=== PATIENT | female | born 1945 | race Caucasian/White ===

== ENCOUNTER → 2024-03-09 10:09 | Outpatient (REF) | payer OTHER, SELFPAY | LOC: HWRAD 10:09 | PROVIDERS: ATTENDING PHYSICIAN Family Medicine | DX: M25.561 Pain in right knee (principal) | CPT/HCPCS: 73564 ==

== ENCOUNTER → 2024-03-24 13:03 | Outpatient (REF) | payer OTHER, SELFPAY | LOC: HWWDC 13:03 | PROVIDERS: ATTENDING PHYSICIAN Family Medicine | DX: Z12.31 Encounter for screening mammogram for malignant neoplasm of breast (principal); Z78.0 Asymptomatic menopausal state | CPT/HCPCS: 77063; 77067; 77080 ==

== ENCOUNTER → 2024-09-28 13:25 | Outpatient (REF) | payer OTHER, SELFPAY | LOC: HWRAD 13:25 | PROVIDERS: ATTENDING PHYSICIAN Physician Assistant | DX: J45.41 Moderate persistent asthma with (acute) exacerbation (principal) | CPT/HCPCS: 71046 ==

== ENCOUNTER 2024-10-13 21:02 | Inpatient (IN) | payer OTHER, SELFPAY ==
[2024-10-13] VITALS (7 sets, daily range): BP systolic 105–149; BP diastolic 59–85; BMI 27.7
--- NOTE | 2024-10-13 15:24 | ED.GENMED ---
ED Provider Triage
<Yessenia Salinas PA-C - Last Filed: 10/13/24 15:30>
-
Patient seen by provider in Triage?: Seen in Triage
Attestation: A medical screening examination has been initiated by a qualified medical provider. Based on the assessment performed at this time, it has been determined that an emergent medical condition may exist and the patient has been informed
that further medical evaluation and possible additional diagnostic testing may be needed.
HPI: 79yoF here with SOB and cough x several weeks. Using inhaler with some improvement. Worse with exertion. Also having decreased PO intake and pleuritic pain. Sent to ED by PCP for evaluation.
GENERAL: Alert , in no apparent distress
EYE: No visual abnormalities.
NECK: Trachea midline
ENT: No visible abnormalities.
LUNGS: No acute respiratory distress
NEUROLOGICAL: Alert and oriented
SKIN: Skin intact. No visible changes.
MUSCULOSKELETAL: Moving extremities normally
PSYCH: Normal and appropriate interaction.
This is a medical evaluation conducted in person to initiate diagnostic evaluation and provide initial therapeutics. Please see further documentation by the treating clinician.
Basilar rales on exam. Cardiac labs, D-dimer, EKG, and CXR ordered.
History of Present Illness
<Yessenia Salinas PA-C - Last Filed: 10/13/24 15:30>
General
Chief Complaint: Breathing Problem
Time Seen by Provider: 10/13/24 18:32
<Clayton Reese MD - Last Filed: 10/13/24 20:00>
General
Source: patient and spouse
Exam Limitations: none
Nursing documentation reviewed up to this point in time: agreed with
History of Present Illness
History of Present Illness:
79-year-old female with a past medical history of hypertension, hyperlipidemia, asthma who presents to the emergency department for evaluation of shortness of breath. Patient reports that she has been dealing with increased shortness of breath over
the past few months that she has been attributing to asthma and has been treated with steroids and albuterol. Over the past 2 weeks her symptoms have become much worse and after a follow-up appoint with your primary doctor in the office today was
referred to the ER for further assessment. She has not had any significant coughing or fever. Has not had any chest pain. She has not noticed any swelling or pain in her legs. She denies any known cardiac history. Denies any known history of
DVT/PE. She did have a recent vacation in [facility] in June which involves a long flight.
Past History
<Yessenia Salinas PA-C - Last Filed: 10/13/24 15:30>
Past History
ED Past Medical History: Asthma, HTN and Hypercholesterolemia
Social History
Tobacco: Non-smoker
Alcohol: Daily
Review of Systems
<Clayton Reese MD - Last Filed: 10/13/24 20:00>
Review of Systems
All Other Systems: ROS reviewed and negative except as documented in HPI and ROS
Constitutional: Reports fatigue; Denies fever or chills
Respiratory: Reports trouble breathing; Denies cough
Cardiac: Reports palpitations (Occasional); Denies chest pain
ABD/GI: Denies abdominal pain, nausea or vomiting
: Denies flank pain
Musculoskeletal: Denies edema, neck pain or back pain
Neurological: Denies dizzy or headache
Phy Exam
<Clayton Reese MD - Last Filed: 10/13/24 20:00>
Physical Exam
Physical Exam:
General: Awake, alert, oriented x3; no acute distress
Head: Normocephalic, atraumatic
Eyes: Conjunctiva normal, EOMI
Throat: Airway intact, handling secretions
Neck: Trachea midline, supple without meningismus
Lungs: Clear to auscultation bilaterally, no wheezing, rales, rhonchi
Heart: Regular rate and rhythm, no murmurs, gallops, or rubs
Abd: Soft, non distended, nontender
Neuro: Cranial nerves grossly intact, speech fluid
Skin: no rash
Extremities: No edema in extremities, equal pulses in all extremities
Scores
<Clayton Reese MD - Last Filed: 10/13/24 20:00>
Heart Failure Risk
Heart Failure Risk Score: Not Applicable
Heart Score for Chest Pain Patients
STEMI patient?: Not applicable
Withdrawal Assessment of Alcohol
Withdrawal Assessment Completed?: Not applicable
Course
<Yessenia Salinas PA-C - Last Filed: 10/13/24 15:30>
Orders/Labs/Results
Orders:
Orders
10/13/24 15:29
Electrocardiogram (*1) Urgent
Reason for Study: Shortness of Breath
EKG- Treatment ONCE
10/13/24 15:35
Complete Blood Count/With Diff Urgent
Comprehensive Metabolic Panel Urgent
D-Dimer Urgent
NT-proBNP Urgent
Troponin I Urgent
10/13/24 16:07
CT Chest Pe Study Urgent
Comment:
Reason For Exam: SOB, elevated D-dimer
10/13/24 18:55
Echo 2D MMode Color/Doppler Stat
Reason for Study: submassive PE
Cardiology Consult: Grady Chen
10/13/24 19:07
Heparin 5,300 units IV NOW STA
Nursing to Place Non Medication Order As Directed
Physician Order: PTT 6 hours after initial start of Heparin infusion
10/13/24 19:09
PULMONARY CONSULT Urgent
Consulting Provider: Flavio Dawson
Was physician already notified: Yes
10/13/24 19:15
Heparin 36296 Units/250 ml 25,000 units in 250 ml IV PER PROTOCOL
Weight to be used for heparin protocol in kilograms (kg):: 66.4
Protocol:: DVT/PE
PTT Goal Range to be used:: PTT 73 to 111 seconds
Order type:: Initial
INITIAL Infusion Dose (UNITS/KG/hr) & then follow protocol:: 18 units/kg/hr
Infusion Dose in UNITS/hr & then follow protocol (UNITS/hr):: 1,200
INFUSION RATE in mL/hr & then follow protocol (mL/hr):: 12
For DVT/PE algorithm, re-bolus for low PTT?: Yes
PTT less than or equal to 64 seconds:: Re-bolus 80 units/kg (max 10,000units). Increase by 300 units/hr
(+ 3mL/hr)
PTT 64.1 to 72.9 seconds:: Re-bolus 40 units/kg (max 5,000 units). Increase by 100 units/hr
(+ 1mL/hr)
PTT 73 to 111 seconds:: Target Range. No change in rate.
PTT 111.1 to 130.9 seconds:: Decrease rate by 100 units/hr (- 1 mL/hr)
PTT 131 to 199.9 seconds:: HOLD for 1 hr. Then decrease by 200 units/hr (- 2mL/hr)
PTT greater than or equal to 200 seconds:: HOLD for 2 hrs & Notify Provider. Then decrease by 300 units/hr
(- 3mL/hr)
Lab follow-up:: Each change, PTT q6h until 2 consecutive are therapeutic. Then
PTT daily.
10/13/24 19:37
Heparin 2,700 units IV PRN PRN
Heparin 5,300 units IV PRN PRN
10/13/24 19:38
PTT Urgent
Comment: Obtain baseline before beginning heparin infusion if not already collected
Abnormal Lab Results
10/13/24
15:35
WBC 11.9 H 10^3/uL
(4.8-10.8)
MCH 33.1 H pg
(27.0-31.0)
Abs Immat Gran (auto) 0.1 H 10^3/uL
(0-0.05)
Absolute Neuts (auto) 7.9 H 10^3/uL
(1.4-6.5)
Absolute Monos (auto) 1.1 H 10^3/uL
(0.1-0.6)
Lymphocytes % 19.8 L %
(20.5-51.1)
Monocytes % 9.6 H %
(1.7-9.3)
D-Dimer 2.89 H ug/mlFEU
(0.00-0.50)
Potassium 3.1 L mmol/L
(3.5-5.1)
Carbon Dioxide 32 H mmol/L
(22-30)
BUN 21 H mg/dl
(7-17)
Glucose 127 H mg/dl
(70-99)
Calcium 10.4 H mg/dl
(8.4-10.2)
10/13/24 15:35
10/13/24 15:35
Vital Signs
Initial and Last Documented VS:
Initial Vital Signs
Temp Pulse Resp Pulse Ox
36.6 C 103 18 96
10/13/24 15:25 10/13/24 15:25 10/13/24 15:25 10/13/24 15:25
Last Documented Vital Signs
Temp Pulse Resp BP Pulse Ox
36.6 C 99 20 129/82 97
10/13/24 17:50 10/13/24 19:35 10/13/24 19:35 10/13/24 19:35 10/13/24 17:50
<Clayton Reese MD - Last Filed: 10/13/24 20:00>
Orders/Labs/Results
Orders:
Orders
10/13/24 15:29
Electrocardiogram (*1) Urgent
Reason for Study: Shortness of Breath
EKG- Treatment ONCE
10/13/24 15:35
Complete Blood Count/With Diff Urgent
Comprehensive Metabolic Panel Urgent
D-Dimer Urgent
NT-proBNP Urgent
Troponin I Urgent
10/13/24 16:07
CT Chest Pe Study Urgent
Comment:
Reason For Exam: SOB, elevated D-dimer
10/13/24 18:55
Echo 2D MMode Color/Doppler Stat
Reason for Study: submassive PE
Cardiology Consult: Grady Chen
10/13/24 19:07
Heparin 5,300 units IV NOW STA
Nursing to Place Non Medication Order As Directed
Physician Order: PTT 6 hours after initial start of Heparin infusion
10/13/24 19:09
PULMONARY CONSULT Urgent
Consulting Provider: Flavio Dawson
Was physician already notified: Yes
10/13/24 19:15
Heparin 87522 Units/250 ml 25,000 units in 250 ml IV PER PROTOCOL
Weight to be used for heparin protocol in kilograms (kg):: 66.4
Protocol:: DVT/PE
PTT Goal Range to be used:: PTT 73 to 111 seconds
Order type:: Initial
INITIAL Infusion Dose (UNITS/KG/hr) & then follow protocol:: 18 units/kg/hr
Infusion Dose in UNITS/hr & then follow protocol (UNITS/hr):: 1,200
INFUSION RATE in mL/hr & then follow protocol (mL/hr):: 12
For DVT/PE algorithm, re-bolus for low PTT?: Yes
PTT less than or equal to 64 seconds:: Re-bolus 80 units/kg (max 10,000units). Increase by 300 units/hr
(+ 3mL/hr)
PTT 64.1 to 72.9 seconds:: Re-bolus 40 units/kg (max 5,000 units). Increase by 100 units/hr
(+ 1mL/hr)
PTT 73 to 111 seconds:: Target Range. No change in rate.
PTT 111.1 to 130.9 seconds:: Decrease rate by 100 units/hr (- 1 mL/hr)
PTT 131 to 199.9 seconds:: HOLD for 1 hr. Then decrease by 200 units/hr (- 2mL/hr)
PTT greater than or equal to 200 seconds:: HOLD for 2 hrs & Notify Provider. Then decrease by 300 units/hr
(- 3mL/hr)
Lab follow-up:: Each change, PTT q6h until 2 consecutive are therapeutic. Then
PTT daily.
10/13/24 19:37
Heparin 2,700 units IV PRN PRN
Heparin 5,300 units IV PRN PRN
10/13/24 19:38
PTT Urgent
Comment: Obtain baseline before beginning heparin infusion if not already collected
Abnormal Lab Results
10/13/24
15:35
WBC 11.9 H 10^3/uL
(4.8-10.8)
MCH 33.1 H pg
(27.0-31.0)
Abs Immat Gran (auto) 0.1 H 10^3/uL
(0-0.05)
Absolute Neuts (auto) 7.9 H 10^3/uL
(1.4-6.5)
Absolute Monos (auto) 1.1 H 10^3/uL
(0.1-0.6)
Lymphocytes % 19.8 L %
(20.5-51.1)
Monocytes % 9.6 H %
(1.7-9.3)
D-Dimer 2.89 H ug/mlFEU
(0.00-0.50)
Potassium 3.1 L mmol/L
(3.5-5.1)
Carbon Dioxide 32 H mmol/L
(22-30)
BUN 21 H mg/dl
(7-17)
Glucose 127 H mg/dl
(70-99)
Calcium 10.4 H mg/dl
(8.4-10.2)
10/13/24 15:35
10/13/24 15:35
Vital Signs
Initial and Last Documented VS:
Initial Vital Signs
Temp Pulse Resp Pulse Ox
36.6 C 103 18 96
10/13/24 15:25 10/13/24 15:25 10/13/24 15:25 10/13/24 15:25
Last Documented Vital Signs
Temp Pulse Resp BP Pulse Ox
36.6 C 99 20 129/82 97
10/13/24 17:50 10/13/24 19:35 10/13/24 19:35 10/13/24 19:35 10/13/24 17:50
<Clayton Reese MD - Last Filed: 10/13/24 20:00>
MDM/Problems Addressed
Differential Diagnosis Includes:
Pneumonia, PE, CHF, asthma
MDM/Problems Addressed:
79-year-old female presents for evaluation of progressive shortness of breath really over the past few months but much worse over the past 2 weeks. She was tachycardic in triage normalized by my assessment, rest of vitals normal including a normal
respiratory rate and normal pulse ox on room air. She was actually seen in triage and had her workup done prior to my initial assessment�her CBC showed marginal leukocytosis, CMP showed hypokalemia. Acceptable renal function. Her D-dimer was
positive and so she was sent for a follow-up CTA which showed bilateral pulmonary embolism with signs of right heart strain. Interestingly her troponin is undetectable but her proBNP was slightly elevated. On receiving these results patient was
immediately brought back to a room and PERT alert called. Case discussed with both pulmonology and interventional radiology. Plan for echocardiogram to better assess RV. Decide regarding catheter directed thrombolysis pending echocardiogram.
Will start on heparin infusion in the meantime. Case discussed with hospitalist for admission. I did discuss with cardiology and air traffic systems technician on-call to facilitate stat echo.
Report received from cardiology: Echocardiogram shows dilated hypocontractile RV with PA pressures of 78. LV normal, EF 50 to 55%. Relayed report to pulmonology and interventional radiology, patient remains stable and is on room air and appears
quite well. Unfortunately clot appears to be too far peripheral for embolectomy.
<Clayton Reese MD - Last Filed: 10/13/24 20:00>
*Radiology
Radiology exam reviewed: radiology read reviewed
*Pulse Oximetry
Patient hypoxic: no
*EKG
Interpreted by ED Provider?: Yes
Heart Rate: 108
Rate: tachycardiac
Rhythm: sinus
[place]: left axis deviation
Interval: normal interval
QRS Pattern: normal QRS
Ischemia: non-specific ST changes
*Critical Care Note
Total Time (30-74mins, 75-104mins- exclusive of procedures): 30
comment:
Critical care statement: A total of 30 minutes of critical care time was provided for this patient. This includes management of unstable vital signs, evaluation of the patient at bedside, frequent reassessment, discussion with
consultants/hospitalist, and review of pertinent medical records. This time was separate from time utilized to perform any aforementioned documented procedures
Data Reviewed
Source: patient and spouse
<Clayton Reese MD - Last Filed: 10/13/24 20:00>
Patient Management
Discussion with other providers: Hospitalist (Discussed with hospitalist), Tax Accountant (Discussed with interventional radiology, pulmonology) and Radiologist (Discussed with radiologist)
Escalation/DeEscalation of care consider admission/obs:
Admission indicated
ED Attending Note
<Yessenia Salinas PA-C - Last Filed: 10/13/24 15:30>
-
Portions of this chart may have been created with voice recognition software.� Occasional wrong word or��sound alike� substitutions may have occurred due to the inherent limitations of voice recognition software.
Discharge Plan
Departure
Patient Disposition: Admit
Date of Disposition: 10/13/24
Time of Disposition: 19:07
Admit to doctor: Brian
Presentation/result/management discussed w/ accepting MD/DO: Hospitalist
Discharge Problem:
Pulmonary embolism
Prescriptions:
No Action
levothyroxine [Synthroid] 100 MCG tablet
100 mcg PO DAILY
hydrochlorothiazide 25 MG tablet
25 mg PO DAILY
albuterol sulfate [Ventolin HFA] 90 MCG/PUFF HFA aerosol inhaler
2 puff inhalation R Q4HPRN PRN (Reason: sob)
losartan 50 mg Tablet
50 mg PO DAILY
atorvastatin 20 mg Tablet
20 mg PO DAILY
ibuprofen 200 mg Tablet
200 mg PO Q6HPRN PRN (Reason: mild pain)
cholecalciferol (vitamin D3) [Vitamin D3] 50 mcg (2,000 unit) Tablet
100 mcg PO Q48H
Interventions
Interventions:
*Risk Screen - Suicide Last Done: 10/13/24 15:27
*General Assessment Last Done: 10/13/24 15:27
*Neglect/Abuse Screening Last Done: 10/13/24 15:27
Discharge Date and Time
Print Language: BURMESE
[2024-10-13 15:43] LABS: % Basophils 0.6 % (0-2); % Eosinophils 3.5 % (0-6); % Immature Granulocytes 0.4 % (0-0.5); % Lymphocytes 19.8 % (20.5-51.1); % Monocytes 9.6 % (1.7-9.3); % Neutrophils 66.1 % (42.2-75.2); Absolute Basophils 0.1 10^3/uL (0-0.2); Absolute Eosinophils 0.4 10^3/uL (0-0.7); Absolute Immature Granulocytes 0.1 10^3/uL (0-0.05); Absolute Lymphocytes 2.4 10^3/uL (1.2-3.4); Absolute Monocytes 1.1 10^3/uL (0.1-0.6); Absolute Neutrophils 7.9 10^3/uL (1.4-6.5); Hematocrit 46.4 % (37.0-47.0); Hemoglobin 15.7 g/dL (12.0-16.0); Mean Corp Hgb Conc. 33.8 g/dL (33.0-37.0); Mean Corpuscular Hgb 33.1 pg (27.0-31.0); Mean Corpuscular Volume 97.7 fL (81.0-99.0); Mean Platelet Volume 10.4 fL (7.4-10.4); Nucleated Red Blood Cells % 0 %; Platelet Count 329 10^3/uL (130-400); Red Blood Cell Count 4.75 10^6/uL (4.20-5.40); Red Cell Dist. Width 12.8 % (11.5-14.5); White Blood Cell Count 11.9 10^3/uL (4.8-10.8)
[2024-10-13 15:55] LABS: ALT (SGPT) 27 U/L (0-35); AST (SGOT) 23 U/L (14-36); Albumin 4.6 g/dl (3.5-5.0); Alkaline Phosphatase 55 U/L (38-126); Blood Urea Nitrogen 21 mg/dl (7-17); Calcium 10.4 mg/dl (8.4-10.2); Carbon Dioxide 32 mmol/L (22-30); Chloride 98 mmol/L (98-107); Glucose 127 mg/dl (70-99); Potassium 3.1 mmol/L (3.5-5.1); Sodium 141 mmol/L (135-145); Total Bilirubin 0.7 mg/dl (0.2-1.3); Total Protein 7.6 g/dl (6.3-8.2); eGFR > 60.00
[2024-10-13 15:56] LABS: D-Dimer 2.89 ug/mlFEU (0.00-0.50)
[2024-10-13 16:13] LABS: NT-proBNP 3400 pg/ml; Troponin I < 0.012 ng/ml
--- NOTE | 2024-10-13 18:58 | W.PN.UPDATE ---
Update Note
Progress Note Update
Received call regarding PERT alert for this patient. She remains hemodynamically stable, pulse rate 72 and saturating 97% on room air. CTA chest shows multiple bilateral pulmonary emboli with severe clot burden and mild evidence of right heart
strain. No evidence of central saddle emboli. I recommended to the ER physician, Dr. Reese, or to get a stat echocardiogram to assess RV function. Also start systemic anticoagulation.
If RV function is moderate to severely dysfunctional then would recommend catheter directed thrombolysis as I do not believe that suction thrombectomy would be possible in this case. Would defer final decision to IR.
Based on her mild right heart strain on CTA chest, as well as her negative troponin, I suspect that patient will have nonsevere RV dysfunction and would likely benefit from systemic anticoagulation alone.
[2024-10-13] MEDS: HEPARIN 5300 UNITS IV (19:46)
--- NOTE | 2024-10-13 20:13 | HPS.HSE ---
Family Physician
-
Family Physician:
Chief Complaint
-
SOB
History of Present Illness
Patient is a 79y F with PMH significant for asthma and hypertension who presents to ED complaining of SOB. Patient states that she started to feel more short of breath in early August. She has had hacking cough and post-nasal drip since that
time and blamed her symptoms on allergies / environmental asthma. She was seen by her PCP and treated with Medrol pack which did improve her symptoms for a time. For the past 3 weeks her symptoms have been gradually progressing. Over the past 3
days her dyspnea has been quite severe. She feels well at rest, but has significant dyspnea with even minimal activity. Patient denies any chest pain, back pain, abdominal pain, N/V/D. She denies any LE edema or calf pain. She has no prior
history of DVT / PE. No family history of VTE.
Patient flew to [place] and [facility] in early August - just prior to onset of these symptoms.
She flew to [facility] in July.
In the ED, patient is resting comfortably and has no complaints while at rest.
Medical History
Past Medical History
Past Medical History: Reports Other
Additional Past Medical History:
Asthma
Bronchiectasis
Hypothyroidism
Hypertension
Melanoma
Past Surgical History: Reports Other
Additional Past Surgical History:
Melanoma Excision (1 year ago)
Cholecystectomy
Tubal Ligation
L Oophorectomy
Left ACL / MCL Repair
Social History
Tobacco: Non-smoker
Alcohol: Daily (1/2 bottle of wine daily.)
Drug: None
Family History
Family History: Other (Mother: Kidney Disease Daughter: Wilms Tumor)
Allergies / Home Medications
Allergies reflects when Allergies were last updated in [facility].
Home Medications with original date entered in [facility]
Allergy/Medication List:
Allergies
Allergy/AdvReac Type Severity Reaction Status Date / Time
No Known Allergies Allergy Verified 10/13/24 15:28
Home Medications
albuterol sulfate 90 mcg/actuation aerosol inhaler (Ventolin HFA) 2 puff inhalation R Q4HPRN PRN sob 02/07/10
hydrochlorothiazide 25 mg tablet 25 mg PO DAILY 02/07/10
levothyroxine 100 mcg tablet (Synthroid) 100 mcg PO DAILY 02/07/10
atorvastatin 20 mg tablet 20 mg PO DAILY 10/13/24
cholecalciferol (vitamin D3) 50 mcg (2,000 unit) tablet (Vitamin D3) 100 mcg PO Q48H 10/13/24
ibuprofen 200 mg tablet 200 mg PO Q6HPRN PRN mild pain 10/13/24
losartan 50 mg tablet 50 mg PO DAILY 10/13/24
Review of Systems
-
History Source: Patient
A 12 point ROS was completed and negative except as noted: Yes
Constitutional: Reports Fatigue; Denies Fever or Chills
EENT: Reports Runny Nose; Denies Sore Throat
Respiratory: Reports Cough and Trouble Breathing
Cardiac: Denies Chest Pain, Diaphoresis, Palpitations or Syncope
Abdomen/GI: Denies Abdominal Pain, Nausea, Vomiting or Diarrhea
: Denies Dysuria or Frequency
Musculoskeletal: Denies Edema
Neurological: Denies Dizzy or Headache
Psych: Denies Depression or Anxiety
Physical Exam
Vital Signs
Vital Signs
Temp Pulse Resp BP Pulse Ox
97.8 F 103 21 123/71 94
10/13/24 17:50 10/13/24 20:00 10/13/24 20:00 10/13/24 20:00 10/13/24 20:02
Physical Exam
General: Other (79y F in no acute distress.)
HEENT: Moist mucous membranes, PERRLA and Other (no JVD or HJR.)
Respiratory: Other (Few rales at bases - otherwise clear. No wheezing.)
Cardiac: S1/S2 and Tachycardia; No Murmur
GI: Soft, Non Tender, Non Distended and Normal Bowel Sounds
Musculoskeletal: No Clubbing, No Cyanosis, No Edema and Other (No calf tenderness / palpable cords.)
Neuro: AO x 3
Laboratory Results
-
10/13/24 15:35
10/13/24 15:35
Laboratory Results
APTT 29.0 Sec (23.4-35.0) 10/13/24 19:38
Total Bilirubin 0.7 mg/dl (0.2-1.3) 10/13/24 15:35
AST 23 U/L (14-36) 10/13/24 15:35
ALT 27 U/L (0-35) 10/13/24 15:35
Alkaline Phosphatase 55 U/L (38-126) 10/13/24 15:35
Troponin I < 0.012 ng/ml 10/13/24 15:35
Impression/Plan
-
A/P: Patient is a 79y F with PMH significant for asthma and hypertension who presents to ED complaining of HOWARD that has been progressive over the past several weeks.
Bilateral Pulmonary Emboli
RV Hypokinesis secondary to the above
- Admit for further evaluation and treatment.
- Appreciate Pulm / Director Of Enterprise Applications evaluation and recommendations.
- Patient clinically appears very well with normal BP, oxygenation without supplemental O2, etc.
- IV heparin infusion and follow for clinical improvement.
- Check LE Dopplers.
- Follow for any new / worsening symptoms.
- Transition to DOAC prior to discharge for at least 6 months of total anticoagulation.
Mild Hypokalemia
- Hold HCTZ for now.
- Check Mg. Follow for changes.
Mild Intermittent Asthma without Acute Exacerbation
- No wheezing appreciated on exam.
- Follow for any new / worsening symptoms.
- Albuterol PRN.
Benign Hypertension
- Stable. Hold HCTZ as noted above.
- Continue losartan with holding parameters.
Hypothyroidism
- Stable. Continue T4 replacement.
DVT Prophylaxis: On IV Heparin
Code Status: Full
[2024-10-13] MEDS: HEPARIN 25000 UNITS/250 ML IV (20:28)
[2024-10-13 20:58] LABS: COVID-19 Antigen Negative (Negative)
[2024-10-14] VITALS (11 sets, daily range): BP systolic 95–116; BP diastolic 62–82; BMI 27.3
[2024-10-14 03:25] LABS: INR 1.13; PT 14.8 Sec (11.4-14.6)
[2024-10-14 03:33] LABS: Troponin I 0.012 ng/ml
[2024-10-14 03:52] LABS: APTT 114.1 Sec (23.4-35.0)
[2024-10-14] MEDS: SYNTHROID 100 MCG PO (06:29)
[2024-10-14 06:54] LABS: Troponin I < 0.012 ng/ml
[2024-10-14 07:30] LABS: Blood Urea Nitrogen 18 mg/dl (7-17); Calcium 9.3 mg/dl (8.4-10.2); Carbon Dioxide 28 mmol/L (22-30); Chloride 101 mmol/L (98-107); Estimated Creatinine Clearance 58 ml/min; Glucose 116 mg/dl (70-99); Potassium 3.3 mmol/L (3.5-5.1); Sodium 138 mmol/L (135-145); eGFR > 60.00
[2024-10-14] MEDS: COZAAR 50 MG PO (08:19)
[2024-10-14] MEDS: FOLVITE 1 MG PO (08:20)
[2024-10-14] MEDS: THIAMINE INJECTION 200 MG IV ×2 (08:20→21:01)
[2024-10-14] MEDS: LIPITOR 20 MG PO (08:21)
--- NOTE | 2024-10-14 08:50 | W.PN.HOSP.TC ---
Today's Communication/Plan
-
Continue IV heparin drip
Assessment / Plan
Assessment / Plan
79y F with PMH significant for asthma and hypertension who presents to ED complaining of SOB. Patient states that she started to feel more short of breath in early August. She has had hacking cough and post-nasal drip since that time and
blamed her symptoms on allergies / environmental asthma. She was seen by her PCP and treated with Medrol pack which did improve her symptoms for a time. For the past 3 weeks her symptoms have been gradually progressing. Over the past 3 days her
dyspnea has been quite severe.
Bilateral Pulmonary Emboli
Acute left lower extremity DVT
RV Hypokinesis secondary to the above
Acute hypoxic respiratory insufficiency
- Appreciate Pulm / Software Reverse Engineer evaluation and recommendations.
- Continue IV heparin drip, will need to have anticoagulation for 3-6 months
Mild Hypokalemia
- Continue to replete, check magnesium
Left Gardner's cyst
-Tylenol as needed pain
Mild Intermittent Asthma without Acute Exacerbation
- No wheezing appreciated on exam.
- Albuterol PRN.
Benign Hypertension
- Stable. Hold HCTZ as noted above.
- Continue losartan with holding parameters.
Hypothyroidism
- Stable. Continue T4 replacement.
DVT Prophylaxis: On IV Heparin
Code Status: Full
Updated at bedside 10/14
Total time spent to see the patient on the floor, examine the patient, review data and lab results, discuss treatment plan with patient, nursing staff around 45 minutes.
Physical Exam
General: No acute distress
HEENT: Normocephalic, Atraumatic, EOMI, MMM
Respiratory: Clear to Auscultation bilaterally
Cardiac: Normal S1/S2, Regular Rate and Rhythm
GI: Soft, Nontender, Nondistended, Normal Bowel Sounds
Extremities: No Clubbing, Cyanosis, or Edema
Neuro: Nonfocal/Grossly Intact
Psych: Calm, Cooperative
Derm: No Visible lesions
Anticipated Discharge: 24 - 48 hours
Subjective/Interval History
-
Date of Service: October 14, 2024
Patient reports dyspnea with activity. She also has pleuritic left-sided chest pain. No fever, no vomiting. No palpitations.
Objective Data
-
Labs:
Laboratory Results
10/14/24 10/14/24 10/14/24
03:02 06:16 09:48
PT 14.8 H
INR 1.13
APTT 114.1 H Pending
Sodium 138
Potassium 3.3 L
Chloride 101
Carbon Dioxide 28
BUN 18 H
Creatinine 0.7
Glucose 116 H
Calcium 9.3
Vital Signs:
Vital Signs
Temp Pulse Resp BP Pulse Ox
97.8 F 91 16 99/76 96
10/13/24 17:50 10/14/24 06:15 10/14/24 06:15 10/14/24 06:00 10/14/24 06:15
[2024-10-14 10:12] LABS: APTT 101.7 Sec (23.4-35.0)
--- NOTE | 2024-10-14 10:27 | CON.PUL ---
Consultation
Consultation Request
Date/Time Consultation Requested: 10/14/2024-8 AM
Date/Time Consultation Performed: 11/03-8:30 AM
Requesting Provider: Hospitalist
Performing Provider: Dr. Richard
Reason for Consultation: Pulmonary emboli
Medical History
-
Chief Complaint: Shortness of breath
History of Present Illness:
79-year-old female with a history of asthma, bronchiectasis, previous pleural effusion last seen by pulmonary Dr Shore 10 years ago and has an appointment in October with Dr. Goode who presented with 6 weeks of shortness of breath and 1 day of
inspiratory chest pains on the left side noted to have bilateral pulmonary emboli-pulmonary consulted for shortness of breath/pulmonary embolism 10/14/2024.. The patient states that for 6 weeks she's noticed that she is more short of breath. She is
not taking any long trips with the exception of [place] in [place] and [place] plane flight in [place]. She has not been sedentary otherwise. She does not have any previous clotting disorders. She does not have history of
miscarriages or family history of clotting. Yesterday she did notice some anterior left chest wall pain, but it was not pleurisy. She is not complaining of any shortness of breath at rest, chest congestion, cough, hemoptysis, pleurisy, abdominal
pain, and is not complaining of leg swelling over left leg is a little slightly more swollen than her right, she reports this to be related to Arthritis..
Past Medical History
Past Medical History: None (Asthma. Bronchiectasis. Thoracentesis 10 years ago. Hypothyroid. Hypertension. Melanoma excision 1 year ago. Cholecystectomy. Tubal ligation. Oophorectomy. Left ACL/MCL repair.)
Social History
Tobacco: Non-smoker
Alcohol: Daily (Half a bottle of wine)
Drug: None
Living: With Family
Occupational Exposures: No known asbestos exposure
Environmental Exposures: No known tuberculosis exposure
Family History
Family History: Other (Mother-kidney disease. Daughter-Wilms tumor)
Allergies / Home Medications
Allergies
Allergy/AdvReac Type Severity Reaction Status Date / Time
No Known Allergies Allergy Verified 10/13/24 15:28
Home Medications
�Medication �Instructions �Recorded �Confirmed �Last Taken �Type
albuterol sulfate 90 mcg/actuation 2 puff inhalation R Q4HPRN PRN sob 02/07/10 10/13/24 10/12/24 History
aerosol inhaler (Ventolin HFA)
hydrochlorothiazide 25 mg tablet 25 mg PO DAILY 02/07/10 10/13/24 10/13/24 History
levothyroxine 100 mcg tablet 100 mcg PO DAILY 02/07/10 10/13/24 10/13/24 History
(Synthroid)
atorvastatin 20 mg tablet 20 mg PO DAILY 10/13/24 10/13/24 10/13/24 History
cholecalciferol (vitamin D3) 50 100 mcg PO Q48H 10/13/24 10/13/24 10/12/24 History
mcg (2,000 unit) tablet (Vitamin
D3)
ibuprofen 200 mg tablet 200 mg PO Q6HPRN PRN mild pain 10/13/24 10/13/24 10/12/24 History
losartan 50 mg tablet 50 mg PO DAILY 10/13/24 10/13/24 10/13/24 History
Review of Systems
-
Unable to Obtain full review of systems at this time due to: Other (Per HPI)
Vitals / Labs / Diagnostic Testing
Vital Signs
Temp Pulse Resp BP Pulse Ox
97.8 F 91 16 99/76 96
10/13/24 17:50 10/14/24 06:15 10/14/24 06:15 10/14/24 06:00 10/14/24 06:15
Lab Data
10/13/24 15:35
10/14/24 06:16
Laboratory Results
10/13/24 10/14/24 10/14/24
19:38 03:02 09:50
PT 14.8 H
INR 1.13
APTT 29.0 114.1 H 101.7 H
Diagnostic Testing:
Physical Exam
-
Exam:
Well-nourished and well-developed in no apparent distress
HEENT-atraumatic, normocephalic
Neck-supple, no JVD, no bruit
Heart-regular rate and rhythm-no murmurs, rubs or gallops, no increased P2, no RV heave
Chest with diminished breath sounds, crackles at the right greater than left base
Back without tenderness
Abdomen-soft, nontender, nondistended, no hepatosplenomegaly
Extremities-no cyanosis, clubbing, edema and good peripheral pulses
Integument-intact, no rashes, lesions or ecchymosis
Neurology-alert and oriented, nonfocal motor and sensory exam
Assessment
-
79-year-old female with a history of asthma, bronchiectasis, previous pleural effusion last seen by pulmonary Dr Shore 10 years ago and has an appointment in October with Dr. Goode who presented with 6 weeks of shortness of breath and 1 day of
inspiratory chest pains on the left side noted to have bilateral pulmonary emboli-pulmonary consulted for shortness of breath/pulmonary embolism 10/14/2024.
Pulmonary kdmhpeqo-jeictaxlrj-hqagquj subacute-extensive bilateral with some saddle
Unprovoked with mild right ventricular strain
PESI-88, class III-high risk
DVT-extensive left lower extremity
Leukocytosis.
Hypokalemia.
Hyperglycemia
Conditions present prior to admission:
Asthma.
Bronchiectasis.
Thoracentesis 10 years ago.
Hypothyroid.
Hypertension.
Melanoma excision 1 year ago.
Cholecystectomy. Tubal ligation. Oophorectomy. Left ACL/MCL repair.
Plan
Patient will be admitted to telemetry unit for close observation
Supplemental oxygen as needed
Aspiration precautions
Incentive spirometry.
Nebulizers if needed-currently not bronchospastic
CT chest personally reviewed--summarized below, moderate to severe clot burden.
Echocardiogram summarized below.
Lower extremity ultrasound with significant clot
Eventual hypercoagulable workup
Full PESI and sPESI summarized above
Heparin drip or Lovenox 1 mg/kg every 12 hours
Anticoagulation for a minimum of 3-6 months
Benefits and risks of thrombolytics therapy were reviewed with patient
Patient has mild tachycardia and no hypotension-currently risks of aggressive thrombolytic therapy outweigh ficnjase-ktcztyd-uoqckee notified of options, reasons for conservative standard of care therapy and is in agreement
Monitor MSAS-half a bottle of wine daily
Thiamine and multivitamins as well as folate.
Ativan if needed
Bedrest �24 hours
DVT prophylaxis-on full anticoagulation
Early nutrition
Early mobilization
Patient reports any seen Dr. Shore 2015 and has an appointment with Dr. Goode October 26, 2024-9:45 AM
Outpatient pulmonary follow-up
Diagnostic data:
Chest x-ray 09/30/2013-NAD
CT chest 06/23/2010-combination of moderate interstitial airway and airspace disease basilar segments of the lower lobes left greater than right
CT chest 10/13/2024-multiple bilateral pulm emboli with saddle thrombus right main pulmonary artery with severe clot burden mild suggestions of right ventricular strain, parenchymal changes likely due to sequelae of multiple bilateral pulmonary emboli
Lower extremity ultrasound 11/03-occlusive thrombus left lower extremity involving left femoral, popliteal peroneal posterior tibial and gastrocnemius veins
Echocardiogram 10/13/2024-EF 50-55%, PA systolic 78, RV volume overload
Data Reviewed
-
EKG: Report reviewed by me
Radiology: Image personally visualized and interpreted and Report reviewed by me
CT Scan: Image personally visualized and interpreted and Report reviewed by me
Medical Tests (Nuc Med, Echo etc): Report reviewed by me
Old Records: Reviewed
Total Time Spent with Patient (in minutes): 65
[2024-10-14 12:48] LABS: Troponin I < 0.012 ng/ml
--- NOTE | 2024-10-14 14:55 | PTCARENOTE ---
Received pt from IMU via stretcher. Pt stood and pivoted to bed. AAOx3. HOWARD. Pt c/o headache, see MAR. Assessed and oriented to room. Spouse at bedside. Pt verbalized understanding of call leo. Call leo within close reach.
[2024-10-14] MEDS: TYLENOL 650 MG PO (15:39)
[2024-10-14 16:40] LABS: APTT 76.9 Sec (23.4-35.0)
[2024-10-14] MEDS: KCL 40 MEQ PO (17:12)
[2024-10-14] MEDS: HEPARIN 25000 UNITS/250 ML IV (19:20)
[2024-10-15] VITALS (8 sets, daily range): BP systolic 102–155; BP diastolic 58–91; PULSE 90; O2SAT 98
[2024-10-15] MEDS: SYNTHROID 100 MCG PO (05:23)
[2024-10-15 06:34] LABS: Hematocrit 39.3 % (37.0-47.0); Mean Corp Hgb Conc. 33.1 g/dL (33.0-37.0); Mean Corpuscular Hgb 33.2 pg (27.0-31.0); Mean Corpuscular Volume 100.3 fL (81.0-99.0); Mean Platelet Volume 10.6 fL (7.4-10.4); Platelet Count 260 10^3/uL (130-400); Red Blood Cell Count 3.92 10^6/uL (4.20-5.40); Red Cell Dist. Width 12.7 % (11.5-14.5); White Blood Cell Count 8.6 10^3/uL (4.8-10.8)
[2024-10-15 07:12] LABS: APTT 101.9 Sec (23.4-35.0)
[2024-10-15 07:33] LABS: Blood Urea Nitrogen 16 mg/dl (7-17); Calcium 9.1 mg/dl (8.4-10.2); Carbon Dioxide 26 mmol/L (22-30); Chloride 102 mmol/L (98-107); Estimated Creatinine Clearance 57 ml/min; Glucose 105 mg/dl (70-99); Magnesium 1.8 mg/dl (1.6-2.3); Sodium 138 mmol/L (135-145); eGFR > 60.00
--- NOTE | 2024-10-15 08:51 | W.PN.HOSP.TC ---
Today's Communication/Plan
-
see bold
Assessment / Plan
Assessment / Plan
79y F with PMH significant for asthma and hypertension who presents to ED complaining of SOB. Patient states that she started to feel more short of breath in early August. She has had hacking cough and post-nasal drip since that time and
blamed her symptoms on allergies / environmental asthma. She was seen by her PCP and treated with Medrol pack which did improve her symptoms for a time. For the past 3 weeks her symptoms have been gradually progressing. Over the past 3 days her
dyspnea has been quite severe.
Acute Bilateral Pulmonary Embolism with Acute cor pulmonale
Acute left lower extremity DVT
RV Hypokinesis secondary to the above
Acute hypoxic respiratory insufficiency
- Appreciate Pulm / Tank Storage Supervisor evaluation and recommendations.
- Change IV heparin drip to subcu Lovenox 1 mg/kg every 12 hours, will need to have anticoagulation for 3-6 months
- Currently requiring 2 L of oxygen, wean as tolerated
- Ambulate, PT
Mild Hypokalemia
- Repleted and resolved, magnesium normal
Left Gardner's cyst
-Tylenol as needed pain
Mild Intermittent Asthma without Acute Exacerbation
- No wheezing appreciated on exam.
- Albuterol PRN.
Benign Hypertension
- Stable. Hold HCTZ as noted above.
- Continue losartan with holding parameters.
Hypothyroidism
- Stable. Continue T4 replacement.
Daily alcohol use
- Patient drinks a half bottle of wine daily
- MSAS protocol
DVT Prophylaxis: Therapeutic Lovenox
Code Status: Full
Updated at bedside 10/15
Total time spent to see the patient on the floor, examine the patient, review data and lab results, discuss treatment plan with patient, nursing staff around 50 minutes.
Physical Exam
General: No acute distress
HEENT: Normocephalic, Atraumatic, EOMI, MMM
Respiratory: Clear to Auscultation bilaterally
Cardiac: Normal S1/S2, Regular Rate and Rhythm
GI: Soft, Nontender, Nondistended, Normal Bowel Sounds
Extremities: No Clubbing, Cyanosis, or Edema
Neuro: Nonfocal/Grossly Intact
Psych: Calm, Cooperative
Derm: No Visible lesions
Anticipated Discharge: 24 - 48 hours
Subjective/Interval History
-
Date of Service: October 14, 2024
Patient denies dyspnea with activity at rest. Her coughing is improved. No hemoptysis. Chest pain has resolved. Left posterior knee pain has resolved. She has not ambulated yet. No fever, no vomiting.
Objective Data
-
Labs:
Laboratory Results
10/14/24 10/14/24 10/14/24
03:02 06:16 09:50
APTT 114.1 H 101.7 H
Sodium 138
Potassium 3.3 L
Chloride 101
Carbon Dioxide 28
BUN 18 H
Creatinine 0.7
Glucose 116 H
Calcium 9.3
10/14/24
16:00
APTT Pending
Sodium
Potassium
Chloride
Carbon Dioxide
BUN
Creatinine
Glucose
Calcium
Vital Signs:
Vital Signs
Temp Pulse Resp BP Pulse Ox
97.5 F 92 17 109/75 99
10/14/24 15:11 10/14/24 15:11 10/14/24 15:11 10/14/24 15:11 10/14/24 15:38
--- NOTE | 2024-10-15 09:21 | W.PN.PUL.V3 ---
Today's Communication / Plan
-
Lovenox 1 mg/kg every 12 hours continues
Convert to oral anticoagulant in the next 24 hours.
Treat with oral anticoagulant for a minimum of 3-6 months.
Outpatient pulmonary molstq-sq-dtc October appointment
Assessment
-
79-year-old female with a history of asthma, bronchiectasis, previous pleural effusion last seen by pulmonary Dr Shore 10 years ago and has an appointment in October with Dr. Goode who presented with 6 weeks of shortness of breath and 1 day of
inspiratory chest pains on the left side noted to have bilateral pulmonary emboli-pulmonary consulted for shortness of breath/pulmonary embolism 10/14/2024.
Pulmonary yeyeizjs-mzgcxasjyy-wggymmy subacute-extensive bilateral with some saddle
Unprovoked with mild right ventricular strain
PESI-88, class III-high risk
DVT-extensive left lower extremity
Leukocytosis.
Hypokalemia.
Hyperglycemia
Conditions present prior to admission:
Asthma.
Bronchiectasis.
Thoracentesis 10 years ago.
Hypothyroid.
Hypertension.
Melanoma excision 1 year ago.
Cholecystectomy. Tubal ligation. Oophorectomy. Left ACL/MCL repair.
Plan
Respiratory status stable-continue telemetry
Supplemental oxygen as needed
Aspiration precautions per protocol
Incentive spirometry encouraged
Nebulizers if needed-currently not bronchospastic
CT chest personally reviewed--summarized below, moderate to severe clot burden.
Echocardiogram summarized below.
Lower extremity ultrasound with significant clot
Eventual hypercoagulable workup
Full PESI summarized above
Lovenox 1 mg/kg every 12 hours
Anticoagulation for a minimum of 3-6 months
Benefits and risks of thrombolytics therapy were reviewed with patient
Patient has no tachycardia and no hypotension-currently risks of aggressive thrombolytic therapy outweigh ncetdbwr-rzmufwh-dwmquqb notified of options, reasons for conservative standard of care therapy and is in agreement
Monitor MSAS-half a bottle of wine daily
Thiamine and multivitamins as well as folate.
Ativan if needed
DVT prophylaxis-on full anticoagulation.
Nutrition
Begin mobilization.
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
Patient reports any seen Dr. Shore 2015 and has an appointment with Dr. Goode October 26, 2024-9:45 AM
Outpatient pulmonary follow-up
Diagnostic data:
Chest x-ray 09/30/2013-NAD
CT chest 06/23/2010-combination of moderate interstitial airway and airspace disease basilar segments of the lower lobes left greater than right
CT chest 10/13/2024-multiple bilateral pulm emboli with saddle thrombus right main pulmonary artery with severe clot burden mild suggestions of right ventricular strain, parenchymal changes likely due to sequelae of multiple bilateral pulmonary emboli
Lower extremity ultrasound 11/03-occlusive thrombus left lower extremity involving left femoral, popliteal peroneal posterior tibial and gastrocnemius veins
Echocardiogram 10/13/2024-EF 50-55%, PA systolic 78, RV volume overload
Subjective Data
-
Date of Service:
Date of Service: October 15, 2024
Chief Complaint: Pulmonary Follow Up, Dyspnea Follow Up and VTE Follow Up
Subjective:
Feels better, no chest pain, no hemoptysis, no pleurisy, no abdominal pain
Review of Systems
General: Other (per HPI)
Objective Data
Data Reviewed
Vital Signs / I&O:
Vital Signs
Temp Pulse Resp BP Pulse Ox
98.6 F 79 16 133/79 95
10/15/24 07:28 10/15/24 07:28 10/15/24 07:28 10/15/24 08:15 10/15/24 07:28
Intake and Output
10/14/24 10/15/24 10/16/24
06:59 06:59 06:59
Intake Total 480 / 480
Balance 480 / 480
SaO2: 95
Nasal Cannula flow liters per minute: 2
Physical Exam
General: Respiratory Distress (n) and Comfortable
HEENT: Normocephalic and Moist Mucous Membranes
Cardiovascular: Regular Rhythm
Respiratory: Wheeze (n), Crackles ( few basilar), Rhonchi (n), Non-Labored Respirations, Accessory Resp Muscle Use (n) and Stridor (n)
GI: Soft, Non Distended and Non Tender
Neurology: Awake, Alert and No Motor Deficits
Skin: Warm, Good Color, Cyanosis (n), Jaundice (n) and Rash (n)
Labs/Micro/Reports
Lab Data
10/15/24 06:14
10/15/24 06:14
Laboratory Results
10/14/24 10/14/24 10/15/24
09:50 16:14 06:14
APTT 101.7 H 76.9 H 101.9 H
[2024-10-15] MEDS: COZAAR 50 MG PO (09:38)
[2024-10-15] MEDS: FOLVITE 1 MG PO (09:40)
[2024-10-15] MEDS: LIPITOR 20 MG PO (09:41)
[2024-10-15] MEDS: THIAMINE INJECTION 200 MG IV ×2 (09:42→21:06)
--- NOTE | 2024-10-15 10:23 | PN.CDI ---
CDI
- -
CDI:
Physician Documentation Request
Admit Date: 10/13/24 21:02
Dear Doctor Do,
Please review the following and provide your response in the progress notes.
Clinical Indicators:
PN, 10/14
#Bilateral Pulmonary Emboli
#...Acute left lower extremity DVT
#RV Hypokinesis secondary to the above
Health Club Manager, PN, 10/14
#Pulmonary hkqgipva-ansaebmrre-zkhmrln subacute-extensive bilateral
#...with some saddle
#...Unprovoked with mild right ventricular strain
Based on the above and your clinical assessment, please clarify the appropriate condition/diagnosis, 'mild right ventricular strain'...:
Acute Pulmonary Embolism with Acute cor pulmonale
Acute Pulmonary Embolism without Acute cor pulmonale
Other(please specify)
Use of terms such as suspected, likely, concern for, or probable (associated with a specific diagnosis that is being evaluated, monitored, or treated as if it exists) are acceptable and can be coded in the inpatient setting, when documented at the
time of discharge.
Thank you,
Brittney Chisholm RN BSN CCDS
CDI Specialist
please contact via tiger text
Please use your independent medical judgment in providing your response.
[2024-10-15] MEDS: LOVENOX 60 MG SC ×2 (11:44→21:05)
--- NOTE | 2024-10-15 16:17 | CM ---
Alert awake oriented patient who lives with her Darin in a 2 story home with 4 steps to enter and 14 steps to bed/bathroom. She is independent in driving and all activates of daily living.She does not use adaptive devices.Declined need for
substance abuse counselling.
No VN in past . No SNF hx
Pharmacy [facility]
PCP Dr Ventura
PLAN Home with no needs
[2024-10-16 03:43] VITALS: BP 112/78
[2024-10-16] MEDS: SYNTHROID 100 MCG PO (06:28)
[2024-10-16 07:15] VITALS: BP 140/84
[2024-10-16] MEDS: FOLVITE 1 MG PO (08:22)
[2024-10-16] MEDS: LIPITOR 20 MG PO (08:22)
[2024-10-16] MEDS: THIAMINE INJECTION 200 MG IV (08:23)
[2024-10-16] MEDS: COZAAR 50 MG PO (08:23)
--- NOTE | 2024-10-16 08:49 | W.PN.HOSP.TC ---
Today's Communication/Plan
-
Medically stable for discharge on Eliquis today
Assessment / Plan
Assessment / Plan
79y F with PMH significant for asthma and hypertension who presents to ED complaining of SOB. Patient states that she started to feel more short of breath in early August. She has had hacking cough and post-nasal drip since that time and
blamed her symptoms on allergies / environmental asthma. She was seen by her PCP and treated with Medrol pack which did improve her symptoms for a time. For the past 3 weeks her symptoms have been gradually progressing. Over the past 3 days her
dyspnea has been quite severe.
Acute Bilateral Pulmonary Embolism with Acute cor pulmonale
Acute left lower extremity DVT
RV Hypokinesis secondary to the above
Acute hypoxic respiratory insufficiency
- Appreciate Pulm / Support Architect evaluation and recommendations.
- Status post IV heparin drip, now on subcu Lovenox 1 mg/kg every 12 hours, will need to have anticoagulation for 3-6 months
- Was requiring 2 L of oxygen, now on room air. No oxygen needed with activity prior respiratory
- Medically stable for discharge on Eliquis 10 mg twice a day for 7 days, then 5 mg twice a day
- Follow-up with pulmonology in the office in 3-4 weeks, PCP in 1 week
Mild Hypokalemia
- Repleted and resolved, magnesium normal
Left Gardner's cyst
-Tylenol as needed pain
Mild Intermittent Asthma without Acute Exacerbation
- No wheezing appreciated on exam.
- Albuterol PRN.
Benign Hypertension
- Patient normotensive off of hydrochlorothiazide, recommend permanently discontinuing
- Continue losartan with holding parameters.
Hypothyroidism
- Stable. Continue T4 replacement.
Daily alcohol use
- Patient drinks a half bottle of wine daily
- MSAS protocol
DVT Prophylaxis: Therapeutic Lovenox
Code Status: Full
Updated at bedside 10/15
Physical Exam
General: No acute distress
HEENT: Normocephalic, Atraumatic, EOMI, MMM
Respiratory: Clear to Auscultation bilaterally
Cardiac: Normal S1/S2, Regular Rate and Rhythm
GI: Soft, Nontender, Nondistended, Normal Bowel Sounds
Extremities: No Clubbing, Cyanosis, or Edema
Neuro: Nonfocal/Grossly Intact
Psych: Calm, Cooperative
Derm: No Visible lesions
Anticipated Discharge: Today
Subjective/Interval History
-
Date of Service: October 16, 2024
Patient ambulated around the hallways, she did not have any chest pain, no shortness of breath. She does have a cough that is the same, nonbloody. No fever, no vomiting.
Objective Data
-
Vital Signs:
Vital Signs
Temp Pulse Resp BP Pulse Ox
98.3 F 86 18 140/84 92
10/16/24 07:15 10/16/24 07:15 10/16/24 07:15 10/16/24 07:15 10/16/24 07:15
I&O
10/15/24 10/16/24 10/17/24
06:59 06:59 06:59
Intake Total 480 / 480 900 / 900
Balance 480 / 480 900 / 900
--- NOTE | 2024-10-16 09:57 | W.PN.PUL.V3 ---
Today's Communication / Plan
-
Continue anticoagulation.
Convert to oral anticoagulants.
Eventual hypercoagulable workup.
Outpatient pulmonary follow-up
Wean oxygen and increase activity
Assessment
-
79-year-old female with a history of asthma, bronchiectasis, previous pleural effusion last seen by pulmonary Dr Shore 10 years ago and has an appointment in October with Dr. Goode who presented with 6 weeks of shortness of breath and 1 day of
inspiratory chest pains on the left side noted to have bilateral pulmonary emboli-pulmonary consulted for shortness of breath/pulmonary embolism 10/14/2024.
Pulmonary rdkyieyb-rmvhpvgeta-chqkwif subacute-extensive bilateral with some saddle
Unprovoked with mild right ventricular strain
PESI-88, class III-high risk
DVT-extensive left lower extremity
Leukocytosis.
Hypokalemia.
Hyperglycemia
Conditions present prior to admission:
Asthma.
Bronchiectasis.
Thoracentesis 10 years ago.
Hypothyroid.
Hypertension.
Melanoma excision 1 year ago.
Cholecystectomy. Tubal ligation. Oophorectomy. Left ACL/MCL repair.
Plan
Respiratory status stable-continue telemetry
Supplemental oxygen as needed-attempt to wean and assess discharge needs.
Discharge
Aspiration precautions per protocol
Incentive spirometry encouraged
Nebulizers if needed-currently not bronchospastic
CT chest personally reviewed--summarized below, moderate to severe clot burden.
Echocardiogram summarized below.
Lower extremity ultrasound with significant clot
Eventual hypercoagulable workup
Full PESI summarized above
Lovenox 1 mg/kg every 12 hours.
Can convert to oral anticoagulants with load in the next 12-24 hours
Anticoagulation for a minimum of 3-6 months
Benefits and risks of thrombolytics therapy were reviewed with patient
Patient has no tachycardia and no hypotension-currently risks of aggressive thrombolytic therapy outweigh ccnmjrkj-htefbap-jvbkhja notified of options, reasons for conservative standard of care therapy and is in agreement
Monitor MSAS-half a bottle of wine daily
Thiamine and multivitamins as well as folate.
Ativan if needed
DVT prophylaxis-on full anticoagulation.
Nutrition
Begin mobilization
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
Patient reports any seen Dr. Shore 2015 and has an appointment with Dr. Goode October 26, 2024-9:45 AM
Outpatient pulmonary follow-up
Diagnostic data:
Chest x-ray 09/30/2013-NAD
CT chest 06/23/2010-combination of moderate interstitial airway and airspace disease basilar segments of the lower lobes left greater than right
CT chest 10/13/2024-multiple bilateral pulm emboli with saddle thrombus right main pulmonary artery with severe clot burden mild suggestions of right ventricular strain, parenchymal changes likely due to sequelae of multiple bilateral pulmonary emboli
Lower extremity ultrasound 11/03-occlusive thrombus left lower extremity involving left femoral, popliteal peroneal posterior tibial and gastrocnemius veins
Echocardiogram 10/13/2024-EF 50-55%, PA systolic 78, RV volume overload
Subjective Data
-
Date of Service:
Date of Service: October 16, 2024
Chief Complaint: Pulmonary Follow Up, Dyspnea Follow Up and VTE Follow Up
Subjective:
No chest pain, pleurisy, has some shortness of breath with exertion, no abdominal pain
Review of Systems
General: Other ( per HPI)
Objective Data
Data Reviewed
Vital Signs / I&O:
Vital Signs
Temp Pulse Resp BP Pulse Ox
98.3 F 86 18 140/84 92
10/16/24 07:15 10/16/24 07:15 10/16/24 07:15 10/16/24 07:15 10/16/24 07:15
Intake and Output
12/05/24 12/06/24 12/07/24
06:59 06:59 06:59
Intake Total 480 / 480 900 / 900
Balance 480 / 480 900 / 900
SaO2: 92
Nasal Cannula flow liters per minute: 2
Physical Exam
General: Respiratory Distress (n) and Comfortable
HEENT: Normocephalic and Moist Mucous Membranes
Cardiovascular: Regular Rhythm
Respiratory: Wheeze (n), Crackles ( few basilar), Rhonchi (n), Non-Labored Respirations, Accessory Resp Muscle Use (n) and Stridor (n)
GI: Soft, Non Distended and Non Tender
Neurology: Awake, Alert and No Motor Deficits
Skin: Warm, Good Color, Cyanosis (n), Jaundice (n) and Rash (n)
Labs/Micro/Reports
Lab Data
10/15/24 06:14
10/15/24 06:14
--- NOTE | 2024-10-16 10:11 | CM ---
Addendum entered by Deya Forbes 10/16/24 12:26:
Eliquis coupon provided.
Addendum entered by Deya Forbes 10/16/24 10:41:
Eliquis pricing per [facility]: $47 per month.
Original Note:
Patient seen bedside.
PT/OT with no recommendations for VN.
Patient denies home care needs.
IMM completed.
Plan:home no needs, spouse will transport.
[2024-10-16] MEDS: LOVENOX 60 MG SC (10:56)
[2024-10-16 11:12] VITALS: BP 103/62
[2024-10-16 15:16] VITALS: BP 117/63
== END 2024-10-16 16:01 | disposition home or self-care (01) | DRG 175 ==
LOC: 3 WEST ACU 21:02
PROVIDERS: Physician Assistant; ADMITTING PHYSICIAN Hospitalist; ATTENDING PHYSICIAN Family Medicine; EMERGENCY PHYSICIAN Emergency Medicine; FAMILY PHYSICIAN Student in an Organized Health Care Education/Training Program; OTHER PHYSICIAN Internal Medicine Critical Care Medicine
DX: I26.09 Other pulmonary embolism with acute cor pulmonale (principal); I82.402 Acute embolism and thrombosis of unspecified deep veins of left lower extremity; J47.9 Bronchiectasis, uncomplicated; J45.20 Mild intermittent asthma, uncomplicated; E03.9 Hypothyroidism, unspecified; I10 Essential (primary) hypertension
CPT/HCPCS: 71275; 80048; 80053; 83735; 83880; 84484; 85025; 85027; 85379; 85610; 85730; 87811; 93005; 93306; 93970; 97162; Q9967

== ENCOUNTER → 2025-01-18 07:47 | Outpatient (REF) | payer OTHER, SELFPAY | LOC: HWRAD 07:47 | PROVIDERS: ATTENDING PHYSICIAN Internal Medicine Critical Care Medicine; FAMILY PHYSICIAN Student in an Organized Health Care Education/Training Program; REFERRING PHYSICIAN Internal Medicine Hematology & Oncology | DX: R93.89 Abnormal findings on diagnostic imaging of other specified body structures (principal) | CPT/HCPCS: 71250; 93306 ==

== ENCOUNTER → 2025-01-22 14:01 | Outpatient (REF) | payer OTHER, SELFPAY | LOC: RAD 14:01 | PROVIDERS: ATTENDING PHYSICIAN Internal Medicine Critical Care Medicine | DX: I82.402 Acute embolism and thrombosis of unspecified deep veins of left lower extremity (principal) | CPT/HCPCS: 93970 ==

== ENCOUNTER → 2025-08-30 08:58 | Outpatient (REF) | payer OTHER, SELFPAY | LOC: HWRCS 08:58 | PROVIDERS: ATTENDING PHYSICIAN Internal Medicine Critical Care Medicine; FAMILY PHYSICIAN Student in an Organized Health Care Education/Training Program | DX: I27.20 Pulmonary hypertension, unspecified (principal) | CPT/HCPCS: 93306 ==